=== PATIENT | female | born 1960 | race Caucasian/White ===

== ENCOUNTER → 2017-03-19 | Outpatient (CLI) | payer OTHER ==
--- NOTE | 2017-03-19 13:07 | WWHP ---
[facility] - HISTORY AND PHYSICAL DATE OF SERVICE: 03/19/2017 CHIEF COMPLAINT: The patient is here for her routine gynecologic exam. HPI: This is a 56-year-old G3, P0-0-3-0 with an LMP of 11/2015. The patient has been using clonidine for hot flashes and this has been helpful. She has decreased this to once a day instead of twice a day. She has not had any vaginal bleeding since her LMP. PAST MEDICAL HISTORY: Asthma. MEDICATIONS: 1. Singulair 10 mg daily. 2. Clonidine 0.1 mg 1 daily. 3. Excedrin migraine p.r.n. ALLERGIES: No known drug allergies. PAST SURGICAL HISTORY: Sinus surgery in 1997, laparoscopy in the past for infertility, colonoscopy 2007. SOCIAL HISTORY: She denies tobacco and drug use and has about 1 alcohol containing drink per month. 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 FAMILY HISTORY: Both parents have diabetes. Grandmother had some type of abdominal tumor. REVIEW OF SYSTEMS: She has lost about 19 pounds over the last year and this has been with diet and exercise. She denies respiratory, cardiac or GI problems. PHYSICAL EXAM: Blood pressure 139/81, height 5 feet 7 inches, weight 148 pounds, BMI 23, temperature 97.9, pulse 87. This is a well-developed, well-nourished white female who is alert and oriented x3, in no acute distress. HEENT is within normal limits. NECK: Supple without mass or thyromegaly. CHEST AND LUNGS: Clear to auscultation. HEART: Regular rate and rhythm. Breasts are without mass or discharge. Axillary exam is negative for adenopathy. BACK: Negative for CVA tenderness. ABDOMEN: Soft, nontender, without palpable masses. PELVIC EXAM: External genitalia reveals mild atrophy without lesions. Cervix and vagina reveals mild atrophy without lesions. The cervix is nulliparous and somewhat stenotic secondary to atrophy. There is no evidence of prolapse. The uterus is mid position, nongravid size and nontender. There are no palpable adnexal masses or tenderness. Rectovaginal exam is negative for mass or tenderness and is negative for occult blood. EXTREMITIES: Nontender. IMPRESSION: A 56-year-old menopausal female with normal gynecologic exam. PLAN: 1. Pap smear was performed. 2. Self-breast examination was discussed. 3. Mammogram is scheduled for next week and a slip was given the patient for this. 4. Osteoporosis prevention was discussed. 5. She will plan on repeating the colonoscopy next year. 6. She will return in 1 year. PAMELA / HANNY: [id number] /
== END ==
LOC: WWCWWP 11:08
PROVIDERS: ATTEND Obstetrics & Gynecology
DX: Z01.419 Encounter for gynecological examination (general) (routine) without abnormal findings (principal)

== ENCOUNTER → 2017-03-26 | Outpatient (CLI) | payer BC ==
--- NOTE | 2017-03-27 08:42 | MM ---
Reason for exam: screening (asymptomatic). Last mammogram was performed 1 year and 6 months ago. History: Patient has history of other cancer at age 48 and is nulliparous. Taking hormonal contraceptives for 2 years. Physical Findings: A clinical breast exam by your physician is recommended on an annual basis and results should be correlated with mammographic findings. MG 3D Screening Mammo W/Cad Bilateral CC and MLO view(s) were taken. Prior study comparison: October 05, 2015, bilateral MG 3d screening mammo w/cad. October 01, 2014, bilateral MG screening mammo w CAD. The breast tissue is heterogeneously dense. This may lower the sensitivity of mammography. There is no discrete abnormality. ASSESSMENT: Negative, BI-RAD 1 RECOMMENDATION: Routine screening mammogram of both breasts in 1 year.
== END | disposition home or self-care (01) ==
LOC: RADMAMWWP 14:35
PROVIDERS: ATTEND Obstetrics & Gynecology
DX: Z12.31 Encounter for screening mammogram for malignant neoplasm of breast (principal)
CPT/HCPCS: 77063; G0202

== ENCOUNTER → 2017-11-06 | Outpatient (CLI) | payer BC, OTHER ==
[2017-11-06 11:46] VITALS: BP 130/73; PULSE 71; TEMP 98.1; BMI 24.1
--- NOTE | 2017-11-06 12:52 | P.PN ---
Progress Note - Text Progress Note Date: 11/06/17 Chief complaint: vaginal bleeding for 8 days. HPI: This is a 57-year-old with an LNMP of 2016. The patient states she started having some vaginal spotting on 10/29/2017. The flow gradually increased and now she needs to use a tampon. She states it is still less than regular menstrual flow. She denies any significant cramping. She does recall that about 2 weeks before bleeding, she noticed some clear discharge from the vagina, similar to when she is to experience with ovulation. It was also around that time that she got a steroid shot from a atm technician for poison nidhi rash. She continues to use clonidine for hot flashes. She states on days she forgets to use the clonidine she starts to notice more hot flashes. In her past, she was told she has a possible by calling your uterus seen by ultrasound. She also had an endometrial biopsy in 2007 which showed a benign polyp. Past medical history: asthma Medications: Singulair 10 mg daily, clonidine 0.1 mg 1 daily, Excedrin migraine PRN. Review of systems: she denies respiratory, cardiac, or G.I. problems. Physical exam: vital signs: blood pressure 130/73, height 5'7", weight 154 pounds, temperature 98.1, pulse 71. This is a well-developed well-nourished white female who was alert and oriented times 3 in no acute distress. HEENT: within normal limits neck: supple without mass or thyromegaly chest and lungs: clear to auscultation heart: regular rate and rhythm abdomen: soft nontender without palpable masses pelvic exam: external genitalia reveals mild atrophy and there is some menstrual type of blood on the external genitalia. There are no lesions noted. Cervix and vagina reveals some menstrual type blood in the vagina. There is no other unusual discharge. There are no cervical or vaginal lesions. There is no cervical motion tenderness. The uterus is mid-positioned, size and nontender. There are no palpable adnexal masses or tenderness. Impression: 1. 57-year-old female with postmenopausal bleeding after 2 years of amenorrhea. 2. History of possible by continuing uterus and history of endometrial polyp in the past. Plan: 1. The patients will undergo a vaginal probe pelvic ultrasound to evaluate the endometrial thickness. If this is greater than 4 mm, we will plan on endometrial tissue sampling. Because of possible by bicornuate uterus, this may be best done under anesthesia with hysteroscopy and D&C. We will consider referral for this. 2. The patient has mentioned that previous lab testing done by Dr. Palacios showed an elevated serum calcium. I've asked her to follow up with Dr. Palacios regarding this. Total time spent with the patient 30 minutes.
--- NOTE | 2017-11-06 14:49 | US ---
EXAMINATION TYPE: US transvaginal DATE OF EXAM: 11/06/2017 COMPARISON: 09/23/2014 CLINICAL HISTORY: N95.0 OVARIAN CYST. Postmenopausal bleeding starting 1 week ago TECHNIQUE: . Transvaginal sonographic images of the pelvis were acquired. Date of LMP: 2 years ago EXAM MEASUREMENTS: Uterus: 6.6 x 3.2 x 4.7 cm Endometrial Stripe: 0.5 cm Right Ovary: 1.4 x 0.9 x 1.1 cm Left Ovary: 2.3 x 0.9 x 0.9 cm 1. Uterus: Anteverted Heterogeneous. Cystic area visualized measuring 0.2 x 0.2 x 0.2 cm 2. Endometrium: Thickened for postmenopausal patient. Slightly heterogeneous, particularly there is a 9 x 3 mm focal oval area of hypoechogenicity seen centrally without appreciable vascular stalk. Thi s is moderately suspicious for intraendometrial polyp. 3. Right Ovary: wnl 4. Left Ovary: wnl 5. Bilateral Adnexa: wnl 6. Posterior cul-de-sac: wnl IMPRESSION: 9 mm focal endometrial lesion concerning for an endometrial polyp. Direct visualization i s recommended.
--- NOTE | 2017-11-12 08:46 | P.PN ---
Progress Note - Text Progress Note Date: 11/12/17 OUTPATIENT FOLLOW-UP NOTE TEST(S)/RESULTS: pelvic ultrasound done on 11/06/2017 revealed a slightly heterogeneous oval area measuring 9 x 3 mm in the endometrial cavity. The endometrial stripe measures 0.5 cm. The ovaries appear within normal limits. METHOD OF NOTIFICATION: the patient was notified by phone on 11/07/17. PATIENT COMMENTS: the patient understands the results. DIAGNOSIS: postmenopausal bleeding with ultrasound findings somewhat suspicious for an endometrial polyp. History of previous endometrial polyp. DISCUSSION: previous endometrial biopsy in 2007 showed a benign polyp. PLAN: I have recommended hysteroscopy and D&C. She will be referred to a local medical clerk for this.
== END | disposition home or self-care (01) ==
LOC: WWCWWP 11:16
PROVIDERS: ATTEND Obstetrics & Gynecology
DX: N95.0 Postmenopausal bleeding (principal); N85.9 Noninflammatory disorder of uterus, unspecified
CPT/HCPCS: 76830

== ENCOUNTER → 2017-12-06 | Outpatient (CLI) | payer BC ==
[2017-12-06 14:47] LABS: Basophils % (A) 0 %; Eosinophils # (A) 0.1 k/uL (0-0.7); Eosinophils % (A) 1 %; HGB 11.8 gm/dL (11.4-16.0); Hypochromasia Slight; Lymphocytes # (A) 1.8 k/uL (1.0-4.8); Lymphocytes % (A) 24 %; MCH 26.5 pg (25.0-35.0); MCHC 31.1 g/dL (31.0-37.0); MCV 85.4 fL (80.0-100.0); Mean Platelet Volume 8.2; Monocytes # (A) 0.4 k/uL (0-1.0); Monocytes % (A) 5 %; Neutrophils # (A) 5.2 k/uL (1.3-7.7); Neutrophils % (A) 67 %; Platelet Count 295 k/uL (150-450); RBC 4.45 m/uL (3.80-5.40); RDW 13.5 % (11.5-15.5); WBC 7.7 k/uL (3.8-10.6)
== END | disposition home or self-care (01) ==
LOC: LABPAT 14:16
PROVIDERS: ATTEND Obstetrics & Gynecology
DX: Z01.812 Encounter for preprocedural laboratory examination (principal); N95.0 Postmenopausal bleeding
CPT/HCPCS: 36415; 85025

== ENCOUNTER → 2018-06-09 | Outpatient (CLI) | payer BC ==
--- NOTE | 2018-06-11 11:29 | MM ---
Reason for exam: screening (asymptomatic). Last mammogram was performed 1 year and 3 months ago. History: Patient is postmenopausal, has history of other cancer at age 48, and is nulliparous. Took hormonal contraceptives for 2 years. Taking other hormone for 1 month. Physical Findings: A clinical breast exam by your physician is recommended on an annual basis and results should be correlated with mammographic findings. MG 3D Screening Mammo W/Cad Bilateral CC and MLO view(s) were taken. Prior study comparison: March 26, 2017, bilateral MG 3d screening mammo w/cad. October 05, 2015, bilateral MG 3d screening mammo w/cad. The breast tissue is heterogeneously dense. This may lower the sensitivity of mammography. There are benign appearing round calcifications bilaterally. There is no discrete abnormality. Focal asymmetry right CC view anterior and middle depth 10mm oval on CC 33/70. ASSESSMENT: Incomplete: need additional imaging evaluation, BI-RAD 0 RECOMMENDATION: Special view mammogram of the right breast. If lesion persists on supplemental views, image directed ultrasound is recommended. [facility] will attempt to contact patient to return for supplemental views and ultrasound if indicated.
== END | disposition home or self-care (01) ==
LOC: RADMAMWWP 09:08
PROVIDERS: ATTEND Obstetrics & Gynecology
DX: Z12.31 Encounter for screening mammogram for malignant neoplasm of breast (principal)
CPT/HCPCS: 77063; 77067

== ENCOUNTER → 2018-06-19 | Outpatient (CLI) | payer BC ==
--- NOTE | 2018-06-19 11:07 | MM ---
Reason for exam: additional evaluation requested from abnormal screening. Last mammogram was performed less than 1 month ago. History: Patient is postmenopausal, has history of other cancer at age 48, and is nulliparous. Took hormonal contraceptives for 2 years. Taking other hormone for 1 month. Physical Findings: Nurse did not find any significant physical abnormalities on exam. MG 3D Work Up W/Cad RT Spot compression CC and LM view(s) were taken of the right breast. Prior study comparison: June 09, 2018, bilateral MG 3d screening mammo w/cad. March 26, 2017, bilateral MG 3d screening mammo w/cad. No distinct lesion persists on additional views. These results were verbally communicated with the patient and result sheet given to the patient on 06/19/18. ASSESSMENT: Benign, BI-RAD 2 RECOMMENDATION: Return to routine screening mammogram schedule for both breasts.
== END ==
LOC: RADMAMWWP 09:00
PROVIDERS: ATTEND Obstetrics & Gynecology
DX: R92.8 Other abnormal and inconclusive findings on diagnostic imaging of breast (principal)
CPT/HCPCS: 77061; 77065

== ENCOUNTER 2018-10-06 06:52 | Day surgery (SDC) | payer BC ==
[2018-09-30 17:36] VITALS: BMI 24.3
[~2018-10-06 06:52] MED LIST: DEXAMETHASONE SOD PHOSPHATE 10 MG/ML 1 ML VIAL IV ONE; LACTATED RINGERS 1,000 ML IV SCH; LIDOCAINE 1% 20 ML VIAL (10MG/ML) FOR IV START INTRADERMA PRN; MIDAZOLAM 2 MG/2 ML VIAL IV PRN; fentaNYL (PF) 50 MCG/ML 2 ML AMP IV PRN
[2018-10-06 07:12] VITALS: RESP 16
[2018-10-06] MEDS ORDERED: ONDANSETRON 4 MG/2 ML VIAL IVP ONE (07:16)
[2018-10-06] MEDS ORDERED: fentaNYL (PF) 50 MCG/ML 2 ML AMP ONE (08:25)
[2018-10-06] MEDS ORDERED: PROPOFOL 10 MG/ML 20 ML VIAL IV ONE (08:25)
[2018-10-06] MEDS ORDERED: KETOROLAC 30 MG/ML 1 ML VIAL ONE (08:25)
[2018-10-06] MEDS ORDERED: LIDOCAINE 1% INJ 10MG/ML (20 ML MDV) ONE (08:25)
[2018-10-06] MEDS ORDERED: MIDAZOLAM 2 MG/2 ML VIAL ONE (08:25)
[2018-10-06] MEDS ORDERED: diphenhydrAMINE 50 MG/ML 1 ML VIAL IVP PRN (08:30)
[2018-10-06] MEDS ORDERED: Acetaminophen-Codeine 300-30mg TAB PO PRN ×2 (08:30)
[2018-10-06] MEDS ORDERED: LACTATED RINGERS 1,000 ML IV SCH (08:30)
[2018-10-06] MEDS ORDERED: METOCLOPRAMIDE 5 MG/ML 2 ML VIAL IVP PRN (08:30)
[2018-10-06] MEDS ORDERED: KETOROLAC 30 MG/ML 1 ML VIAL IVP PRN (08:30)
[2018-10-06] MEDS ORDERED: ONDANSETRON 4 MG/2 ML VIAL IVP PRN (08:30)
[2018-10-06] MEDS ORDERED: SIMETHICONE 80 MG CHEWABLE PO PRN (08:30)
[2018-10-06] MEDS ORDERED: IBUPROFEN 600 MG TAB PO PRN (08:30)
--- NOTE | 2018-10-06 08:59 | P.OP ---
Date of Procedure: 10/06/18 Preoperative Diagnosis: #1. Endometrial polyp #2. Postmenopausal bleeding Postoperative Diagnosis: Same Procedure(s) Performed: #1. Diagnostic hysteroscopy #2. Endometrial polypectomy #3. Dilation and curettage Anesthesia: other (Gen. by face mask) Surgeon: Jose Horton Estimated Blood Loss (ml): 2 IV fluids (ml): 300 Urine output (ml): 50 Pathology: other (endometrial polyp with endometrial curettings) Condition: stable Disposition: PACU Operative Findings: Preoperative pelvic examination demonstrated a atrophic to 4 week size uterus with normal and nonpalpable adnexa bilaterally. Intraoperatively, the uterus sounded to 8 cm. The hysteroscopic view of the cavity demonstrated completely atrophic findings aside from a fairly obvious polypoid structure in the right cornu of the uterus. The uterus was somewhat heart-shaped as a general rule. The polyp appeared to be removed intact with a polyp forceps. The typical gritty texture was encountered throughout with the sharp curet. Description of Procedure: The patient was prepped and draped in usual fashion after general anesthesia was Mester by the anesthesiologist. A weighted speculum was placed and the bladder drained of approximately 50 mL of clear elizabeth urine. The anterior lip of the cervix was grasped with a single-tooth tenaculum and uterus sounded to 8 cm as noted above. Serial dilation was carried out to admit the diagnostic hysteroscope which was placed into the uterus and distended with saline. The uterus was noted to be somewhat heart-shaped with the left cornu showing only atrophic signs while the right cornu had an obvious polypoid structure originating from the posterior lateral wall which was small in nature. The remainder of the cavity was entirely atrophic and both tubal ostia were seen. After removing the scope and set aside, a polyp forceps was introduced into the cavity in the polyp grasped firmly and removed intact. A sharp curette was then utilized to circumferentially and thoroughly curette the in vitro cavity onto the same Telfa as the polyp had been placed. The area where the polyp originated was thoroughly curetted to attempt to remove any base. After thorough and circumferential curettage, all instrumentation was removed. Estimated blood loss for the case was approximately 2 mL or less. There are no complications. All sponge, instrument, needle counts were correct. The patient tolerated the procedure all proceeded to the recovery room in stable condition.
[2018-10-06 09:14] VITALS: TEMP 97.2
[2018-10-06 10:14] VITALS: BP 122/75; PULSE 75
== END 2018-10-06 10:40 | disposition home or self-care (01) ==
LOC: OR 06:52
PROVIDERS: ATTEND Obstetrics & Gynecology
DX: N84.0 Polyp of corpus uteri (principal); N95.0 Postmenopausal bleeding; J45.909 Unspecified asthma, uncomplicated; Z85.828 Personal history of other malignant neoplasm of skin; Z79.899 Other long term (current) drug therapy
CPT/HCPCS: 58558; 88305; J2250; J1100; J2405; J2001; J3010; J1885; J2704

== ENCOUNTER 2019-01-21 07:58 | Day surgery (SDC) | payer BC ==
[2019-01-19 08:09] VITALS: BMI 24.0
[~2019-01-21 07:58] MED LIST changes: -DEXAMETHASONE SOD PHOSPHATE 10 MG/ML 1 ML VIAL IV ONE; -MIDAZOLAM 2 MG/2 ML VIAL IV PRN; -fentaNYL (PF) 50 MCG/ML 2 ML AMP IV PRN
[2019-01-21 08:23] VITALS: RESP 16; TEMP 98.7
[2019-01-21] MEDS ORDERED: PROPOFOL 10 MG/ML 20 ML VIAL IV ONE (08:47)
[2019-01-21] MEDS ORDERED: ONDANSETRON 4 MG/2 ML VIAL ONE (08:47)
[2019-01-21] MEDS ORDERED: GLUCAGON 1 MG/ML VIAL ONE (08:47)
--- NOTE | 2019-01-21 08:54 | P.GSHP ---
History of Present Illness H&P Date: 01/21/19 Chief Complaint: Screening colonoscopy This is a 58-year-old female who presents today for screening colonoscopy. Patient has had complaints of left lower quadrant pain. Past Medical History Past Medical History: Asthma, Cancer, Hearing Disorder / Deafness, Skin Disorder Additional Past Medical History / Comment(s): BASAL CELL SKIN CA. HEARING LOSS RT EAR. CHRONIC NECK PAIN. History of Any Multi-Drug Resistant Organisms: None Reported Additional Past Surgical History / Comment(s): SINUS SURG. LAPAROSCOPIC PROC R/T INFERTILITY. COLONOSCOPY. D&C, HYSTEROSCOPY 12/2017, D & C Past Anesthesia/Blood Transfusion Reactions: Previous Problems w/ Anesthesia, Motion Sickness, Postoperative Nausea & Vomiting (PONV) Additional Past Anesthesia/Blood Transfusion Reaction / Comment(s): HX "ED - EMERGENCE DELIRIUM." Smoking Status: Never smoker - Past Family History Sister(s) Family Medical History: Cancer Additional Family Medical History / Comment(s): SKIN CA IN [place] Medications and Allergies Home Medications Medication Instructions Recorded Confirmed Type [id number] 1 each PO Q4HR PRN 12/12/17 01/21/19 History [Excedrin] Montelukast [Singulair] 10 mg PO HS 12/12/17 01/21/19 History cloNIDine HCL [Catapres] 0.1 mg PO QAM 12/12/17 01/21/19 History Allergies Allergy/AdvReac Type Severity Reaction Status Date / Time No Known Allergies Allergy Verified 01/19/19 08:03 Surgical - Exam Vital Signs Temp Pulse Resp BP Pulse Ox 98.7 F 77 16 125/69 96 01/21/19 08:17 01/21/19 08:17 01/21/19 08:17 01/21/19 08:17 01/21/19 08:17 - General well developed, well nourished, no distress - Eyes PERRL - ENT normal pinna - Neck no masses - Respiratory normal expansion - Cardiovascular Rhythm: regular - Abdomen Abdomen: soft, non tender Assessment and Plan Assessment: We'll perform screening colonoscopy
--- NOTE | 2019-01-21 09:15 | P.OP ---
Date of Procedure: 01/21/19 Preoperative Diagnosis: Screening colonoscopy Postoperative Diagnosis: Diverticulitis Procedure(s) Performed: Colonoscopy Anesthesia: MAC Surgeon: James Charles Pathology: other (Diverticulitis) Condition: stable Disposition: PACU Description of Procedure: The patient's placed on the endoscopy table lateral position. She received IV sedation. Digital rectal exam was performed which revealed no abnormalities. Flexible colonoscope was then paced patient anus and passed throughout the colon. There was extensive diverticular changes. In the sigmoid colon there is evidence of diverticulitis with erythema inflammation of the mucosa. This was biopsied. The colon appeared to be thickened. The scope was not advanced due to risk of colonic perforation. Scope was withdrawn. The rectum appeared normal. Scope withdrawn for patient. Patient's placed on by mouth Levaquin Flagyl. She'll follow-up the office a week.
[2019-01-21 09:34] VITALS: BP 120/70; PULSE 62
== END 2019-01-21 10:17 | disposition home or self-care (01) ==
LOC: ORWHC2ENDO 07:58
PROVIDERS: ATTEND Surgery
DX: Z12.11 Encounter for screening for malignant neoplasm of colon (principal); K57.32 Diverticulitis of large intestine without perforation or abscess without bleeding; J45.909 Unspecified asthma, uncomplicated; H91.90 Unspecified hearing loss, unspecified ear; G89.29 Other chronic pain; M54.2 Cervicalgia; Z85.828 Personal history of other malignant neoplasm of skin; Z80.8 Family history of malignant neoplasm of other organs or systems; Z90.710 Acquired absence of both cervix and uterus; Z79.899 Other long term (current) drug therapy
CPT/HCPCS: 88305; 45380; J1610; J2405; J2704

== ENCOUNTER → 2019-12-02 | Day surgery (SDC) | payer BC ==
[~2019-12-02] MED LIST changes: +LIDOCAINE 1% (10MG/ML) FOR IV START INTRADERMA PRN; -LIDOCAINE 1% 20 ML VIAL (10MG/ML) FOR IV START INTRADERMA PRN; +LIDOCAINE 1% INJ 10MG/ML (20 ML MDV) ONE; +PROPOFOL 10 MG/ML 20 ML VIAL IV ONE
[2019-12-02 10:12] VITALS: RESP 16; TEMP 97.5
--- NOTE | 2019-12-02 11:18 | P.PCN ---
Date of Procedure: 12/02/19 Procedure(s) Performed: BRIEF HISTORY: Patient is a 59-year-old pleasant white female scheduled for an elective colonoscopy as a part of screening for colorectal neoplasia. She had an incomplete colonoscopy in March 2019 by PROCEDURE PERFORMED: Colonoscopy with biopsy. PREOPERATIVE DIAGNOSIS: Screening for colon cancer IV sedation per Anesthesia. PROCEDURE: After informed consent was obtained, the patient, was brought into the endoscopy unit. IV sedation was administered by Anesthesia under continuous monitoring. Digital rectal examination was normal. Initially the Olympus CF-160 flexible video colonoscope was then inserted in the rectum, gradually advanced into the cecum without any difficulty. Careful examination was performed as the scope was gradually being withdrawn. Ileocecal valve and the appendiceal orifice were visualized and appeared normal. Prep was excellent. Mucosa of the cecum, ascending colon, transverse colon, descending colon, appeared normal. In the distal sigmoid colon there was a 3 mm polyp that was removed by cold biopsy. Moderate left-sided diverticulosis seen. Rest of the sigmoid colon, and rectum appeared normal. Retroflexion was performed in the rectum and no lesions were seen. The patient tolerated the procedure well. IMPRESSION: 2-3 mm; polyp status post removal by cold biopsy Moderate left sided diverticulosis. RECOMMENDATIONS: Findings of this examination were discussed with the patient as well as a family. She was advised to follow with the biopsy results. If the biopsy shows an adenoma she can have a repeat colonoscopy in 5 years..
[2019-12-02 11:32] VITALS: BP 120/68; PULSE 64
== END ==
LOC: ORWHC2ENDO 09:48
PROVIDERS: ATTEND Internal Medicine Gastroenterology
DX: Z12.11 Encounter for screening for malignant neoplasm of colon (principal); K57.30 Diverticulosis of large intestine without perforation or abscess without bleeding; K63.5 Polyp of colon; J45.909 Unspecified asthma, uncomplicated; G47.30 Sleep apnea, unspecified; F17.200 Nicotine dependence, unspecified, uncomplicated; G43.909 Migraine, unspecified, not intractable, without status migrainosus; Z79.899 Other long term (current) drug therapy; Z88.6 Allergy status to analgesic agent; Z91.048 Other nonmedicinal substance allergy status
CPT/HCPCS: 88305; 45380; J2001; J2704

== ENCOUNTER → 2019-12-08 | Outpatient (CLI) | payer BC ==
--- NOTE | 2019-12-09 10:16 | MM ---
Reason for exam: screening (asymptomatic). Last mammogram was performed 1 year and 6 months ago. History: Patient is postmenopausal, has history of other cancer at age 48, and is nulliparous. Took hormonal contraceptives for 2 years. Taking other hormone for 1 month. Physical Findings: A clinical breast exam by your physician is recommended on an annual basis and results should be correlated with mammographic findings. MG 3D Screening Mammo W/Cad Bilateral CC and MLO view(s) were taken. Prior study comparison: June 19, 2018, right breast MG 3d work up w/cad RT. June 09, 2018, bilateral MG 3d screening mammo w/cad. The breast tissue is heterogeneously dense. This may lower the sensitivity of mammography. There is no discrete abnormality. No significant changes when compared with prior studies. ASSESSMENT: Negative, BI-RAD 1 RECOMMENDATION: Routine screening mammogram of both breasts in 1 year.
== END | disposition home or self-care (01) ==
LOC: RADMAMWWP 11:17
PROVIDERS: ATTEND Obstetrics & Gynecology
DX: Z12.31 Encounter for screening mammogram for malignant neoplasm of breast (principal)
CPT/HCPCS: 77063; 77067

== ENCOUNTER → 2021-03-15 | Outpatient (CLI) | payer OTHER ==
[2021-03-15 14:42] LABS: Ionized Calcium 6.3 mg/dL (4.5-5.3)
[2021-03-16 03:11] LABS: Albumin 4.3 g/dL (3.8-4.9); Calcium 11.1 mg/dL (8.7-10.3)
== END | disposition home or self-care (01) ==
LOC: LABWHC1 13:05
PROVIDERS: ATTEND Family Medicine
DX: E83.52 Hypercalcemia (principal)
CPT/HCPCS: 36415; 82040; 82310; 82330; 83970

== ENCOUNTER → 2021-08-02 | Outpatient (CLI) | payer OTHER ==
--- NOTE | 2021-08-03 12:06 | MM ---
Reason for exam: screening (asymptomatic). Last mammogram was performed 1 year and 8 months ago. History: Patient is postmenopausal, has history of other cancer at age 48, and is nulliparous. Took hormonal contraceptives for 2 years. Taking other hormone for 1 month. Physical Findings: A clinical breast exam by your physician is recommended on an annual basis and results should be correlated with mammographic findings. MG 3D Screening Mammo W/Cad Bilateral CC and MLO view(s) were taken. Prior study comparison: December 08, 2019, bilateral MG 3d screening mammo w/cad. June 19, 2018, right breast MG 3d work up w/cad RT. The breast tissue is heterogeneously dense. This may lower the sensitivity of mammography. There is no discrete abnormality. ASSESSMENT: Negative, BI-RAD 1 RECOMMENDATION: Routine screening mammogram of both breasts in 1 year.
== END | disposition home or self-care (01) ==
LOC: RADMAMWWP 14:57
PROVIDERS: ATTEND Family Medicine
DX: Z12.31 Encounter for screening mammogram for malignant neoplasm of breast (principal)
CPT/HCPCS: 77063; 77067

== ENCOUNTER → 2023-02-15 | Outpatient (CLI) | payer OTHER ==
--- NOTE | 2023-02-18 14:37 | MM ---
Reason for Exam: Screening (asymptomatic). Last mammogram was performed 1 year(s) and 7 month(s) ago. Patient History: Menarche at age 12. Patient has no children. Postmenopausal. Patient used Hormonal Contraceptives for 2 years. Risk Values: Anuja 5 year model risk: 1.6%. NCI Lifetime model risk: 6.6%. Prior Study Comparison: 06/19/2018 Right Diagnostic Mammogram, [facility]. 12/08/2019 Bilateral Screening Mammogram, [facility]. 08/02/2021 Bilateral Screening Mammogram, [facility]. Tissue Density: The breast tissue is heterogeneously dense. This may lower the sensitivity of mammography. Findings: Analyzed By CAD. There is no suspicious group of microcalcifications or new suspicious mass in either breast. Overall Assessment: Benign, BI-RAD 2 Management: Screening Mammogram of both breasts in 1 year. . Patient should continue monthly self-breast exams. A clinical breast exam by your physician is recommended on an annual basis. This exam should not preclude additional follow-up of suspicious palpable abnormalities. Note on Anuja scores and lifetime risk: 1. A Anuja score greater than 3% is considered moderate risk. If this is the case, consider specialist referral to assess eligibility for a risk reducing agent. 2. If overall lifetime risk for the development of breast cancer is 20% or higher, the patient may qualify for future screening with alternating mammogram and breast MRI. Electronically signed and approved by: Noe Jaime M.D. Radiologis
== END | disposition home or self-care (01) ==
LOC: RADMAMWWP 14:58
PROVIDERS: ATTEND Family Medicine
DX: Z12.31 Encounter for screening mammogram for malignant neoplasm of breast (principal); Z78.0 Asymptomatic menopausal state
CPT/HCPCS: 77063; 77067